=== PATIENT | male | born 1935 | race Two or more races ===

== ENCOUNTER 2018-06-13 05:44 | Day surgery (SDC) | payer MEDICARE, OTHER ==
[~2018-06-13] VITALS: Ht 167.6 cm; Wt 75.9 kg
[2018-06-13] MEDS ORDERED: LACTATED RINGERS 1,000 ML IV SCH (06:32)
[2018-06-13] MEDS ORDERED: ALFU10TA PO (06:36)
[2018-06-13] MEDS ORDERED: SITA100T PO (06:36)
[2018-06-13] MEDS ORDERED: PANT40TA3 PO (06:36)
[2018-06-13] MEDS ORDERED: AMLO5TAB7 PO (06:36)
[2018-06-13] MEDS ORDERED: METO50TA82 PO (06:36)
[2018-06-13] MEDS ORDERED: ATOR10TA9 PO (06:36)
[2018-06-13] MEDS ORDERED: METF500T17 PO (06:36)
[2018-06-13 06:55] VITALS: BP 123/83
[2018-06-13 07:26] VITALS: BP 123/83
[2018-06-13] MEDS ORDERED: FENTANYL PF 100 MCG/2ML ONE (07:29)
[2018-06-13] MEDS ORDERED: MEPERIDINE/PF 25MG/0.5ML IVPush PRN (08:30)
[2018-06-13] MEDS ORDERED: hydrALAzine 20 MG/ML, 1ML IV PRN (08:30)
[2018-06-13] MEDS ORDERED: METOPROLOL 1 MG/ML, 5ML IV PRN (08:30)
[2018-06-13] MEDS ORDERED: DIPHENHYDRAMINE 50 MG/ML, 1ML IVPush PRN (08:30)
[2018-06-13] MEDS ORDERED: FENTANYL PF 100 MCG/2ML IV PRN (08:30)
[2018-06-13] MEDS ORDERED: LABETALOL 5MG/ML, 20ML IV PRN (08:30)
[2018-06-13] MEDS ORDERED: ONDANSETRON 2MG/ML, 2ML ONE (08:37)
[2018-06-13] MEDS ORDERED: GLYCOPYRROLATE 0.2MG/1ML, 5ML ONE (08:37)
[2018-06-13] MEDS ORDERED: PROPOFOL 10 MG/ML, 20ML ONE (08:37)
[2018-06-13] MEDS ORDERED: CEFAZOLIN 1,000 MG ONE (08:37)
[2018-06-13] MEDS ORDERED: ROCURONIUM 10MG/ML,5ML ONE (08:37)
[2018-06-13] MEDS ORDERED: DEXAMETHASONE 4 MG/ML, 1ML ONE (08:37)
[2018-06-13] MEDS ORDERED: SUCCINYLCHOLINE 20 MG/ML, 10ML ONE (08:37)
[2018-06-13] MEDS ORDERED: NEOSTIGMINE 1 MG/ML, 10ML ONE (08:37)
== END 2018-06-13 10:20 | disposition home or self-care (01) ==
LOC: OUT 05:44
PROVIDERS: ATTEND Internal Medicine Geriatric Medicine
DX: K21.0 Gastro-esophageal reflux disease with esophagitis (principal); K44.9 Diaphragmatic hernia without obstruction or gangrene; C96.9 Malignant neoplasm of lymphoid, hematopoietic and related tissue, unspecified; M10.9 Gout, unspecified; Z86.010 Personal history of colon polyps; Z85.46 Personal history of malignant neoplasm of prostate; Z98.42 Cataract extraction status, left eye; Z98.41 Cataract extraction status, right eye; Z72.89 Other problems related to lifestyle
CPT/HCPCS: 43238; 82803; 82962; 88172; 88173; 88305; 88313; 88342; 93005; J0330; J0690; J1100; J2405; J2704; J2710; J3010; J3490; G0461

== ENCOUNTER 2018-07-14 07:46 | Day surgery (SDC) | payer MEDICARE ==
[~2018-07-14] VITALS: Ht 167.6 cm; Wt 76.2 kg
[~2018-07-14 07:46] MED LIST: ALFU10TA PO; AMLO5TAB7 PO; ATOR10TA9 PO; METF500T17 PO; METO50TA82 PO; PANT40TA3 PO; SITA100T PO
[2018-07-14 08:28] VITALS: BP 130/89
[2018-07-14] MEDS ORDERED: CEFAZOLIN PMX 1GM/50ML 50 ML IV ONE (08:30)
[2018-07-14] MEDS ORDERED: SODIUM CHLORIDE 0.9% 1,000 ML IV SCH (08:30)
[2018-07-14] MEDS ORDERED: CEFAZOLIN PMX 1GM/50ML 50 ML ONE (08:33)
[2018-07-14] MEDS ORDERED: LIDOCAINE-MPF 1%, 5ML ONE (08:54)
[2018-07-14] MEDS ORDERED: MIDAZOLAM 1 MG/ML, 5ML ONE ×2 (09:20→09:21)
[2018-07-14] MEDS ORDERED: FENTANYL PF 100 MCG/2ML ONE (09:20)
[2018-07-14] MEDS ORDERED: FLUMAZENIL 0.1 MG/1 ML, 5ML ONE (09:21)
[2018-07-14] MEDS ORDERED: NALOXONE 1 MG/ML, 2ML ONE (09:21)
== END 2018-07-14 11:30 | disposition home or self-care (01) ==
LOC: OUT 07:46
PROVIDERS: ATTEND Internal Medicine Hematology & Oncology
DX: Z45.2 Encounter for adjustment and management of vascular access device (principal); C15.9 Malignant neoplasm of esophagus, unspecified; E11.9 Type 2 diabetes mellitus without complications; I10 Essential (primary) hypertension; Z90.49 Acquired absence of other specified parts of digestive tract; Z98.890 Other specified postprocedural states
CPT/HCPCS: 36561; 76937; 77001; 99156; 99157; C1788; J0690; J7030; J2250; J3010; J1642; J2310

== ENCOUNTER → 2018-11-10 | Outpatient (CLI) | payer MEDICARE ==
[~2018-11-10] MED LIST changes: +ACET325T26 PO; +AMLO-150 PO; -AMLO5TAB7 PO; +ATOR20TA PO; +METO25TA91 PO; +OXYCODONE PO; +POTA20PA25 PO; +SERT25TA PO
== END | disposition home or self-care (01) ==
LOC: STAR 13:41
PROVIDERS: ATTEND Internal Medicine Geriatric Medicine
DX: Z01.818 Encounter for other preprocedural examination (principal); C15.9 Malignant neoplasm of esophagus, unspecified
CPT/HCPCS: 93005

== ENCOUNTER 2018-11-14 06:46 | Day surgery (SDC) | payer MEDICARE ==
[~2018-11-14] VITALS: Ht 152.4 cm; Wt 64.9 kg
[2018-11-14] MEDS ORDERED: LACTATED RINGERS 1,000 ML IV SCH (07:21)
[2018-11-14 07:24] VITALS: BP 127/75
[2018-11-14] MEDS ORDERED: LIDOCAINE-MPF 1%, 2ML INFIL ONE (07:30)
[2018-11-14] MEDS ORDERED: SUCCINYLCHOLINE 20 MG/ML, 10ML ONE (08:36)
[2018-11-14] MEDS ORDERED: PROPOFOL 10 MG/ML, 20ML ONE (08:36)
[2018-11-14] MEDS ORDERED: FENTANYL PF 100 MCG/2ML IV PRN (10:00)
[2018-11-14] MEDS ORDERED: OXYcodone 5 MG/5 ML ORAL.SOL UDC PO PRN (10:00)
[2018-11-14] MEDS ORDERED: MEPERIDINE/PF 25MG/0.5ML IVPush PRN (10:00)
[2018-11-14] MEDS ORDERED: LABETALOL 5MG/ML, 20ML IV PRN (10:00)
[2018-11-14] MEDS ORDERED: HYDROmorphone 1 MG/ML, 1ML IV PRN (10:00)
[2018-11-14] MEDS ORDERED: ONDANSETRON 2MG/ML, 2ML IVPush PRN (10:00)
[2018-11-14] MEDS ORDERED: MIDAZOLAM 1 MG/ML, 2ML IV PRN (10:00)
== END 2018-11-14 10:42 | disposition home or self-care (01) ==
LOC: OUT 06:46
PROVIDERS: ATTEND Internal Medicine Geriatric Medicine
DX: C15.9 Malignant neoplasm of esophagus, unspecified (principal); I10 Essential (primary) hypertension; E11.9 Type 2 diabetes mellitus without complications; Z98.890 Other specified postprocedural states; Z90.49 Acquired absence of other specified parts of digestive tract; Z79.84 Long term (current) use of oral hypoglycemic drugs
CPT/HCPCS: 43237; 82962; J0330; J2704; J7120

== ENCOUNTER 2020-04-22 06:59 | Day surgery (SDC) | payer MEDICARE ==
[~2020-04-22] VITALS: Ht 167.6 cm; Wt 67.9 kg
[2020-04-22] MEDS ORDERED: CHLORHEXIDINE 15 ML UDC MM STA (07:26)
[2020-04-22] MEDS ORDERED: LACTATED RINGERS 1,000 ML IV SCH (07:26)
[2020-04-22 07:31] VITALS: BP 128/80
[2020-04-22] MEDS ORDERED: METF500T3 PO (07:39)
[2020-04-22] MEDS ORDERED: MIRA25TA PO (07:39)
[2020-04-22] MEDS ORDERED: METO25TA35 PO (07:39)
[2020-04-22] MEDS ORDERED: ALBU2.5V11 NEB (07:39)
[2020-04-22] MEDS ORDERED: TIZA4CAP PO (07:39)
[2020-04-22] MEDS ORDERED: ASPI-515 PO (07:39)
[2020-04-22] MEDS ORDERED: PANT40TA3 PO (08:14)
[2020-04-22] MEDS ORDERED: ATOR20TA37 PO (08:14)
[2020-04-22 08:15] LABS: BASOPHILS # (AUTO) 0.02 x10^3/uL (0-0.1); BASOPHILS % (AUTO) 0 % (0-1); EOSINOPHILS # (AUTO) 0.03 x10^3/uL (0-0.4); EOSINOPHILS % (AUTO) 1 % (1-7); LYMPHOCYTES % (AUTO) 14 % (22-44); MD NO; MEAN CORPUSCULAR HEMOGLOBIN 26.1 pg (27.5-34.5); MEAN CORPUSCULAR HGB CONC 32.1 g/dL (33.2-36.2); MEAN CORPUSCULAR VOLUME 81.1 fL (81-97); MEAN PLATELET VOLUME 8.5 fL (7.4-10.4); MONOCYTES # (AUTO) 0.42 x10^3/uL (0.2-0.8); MONOCYTES % (AUTO) 9 % (2-9); NEUTROPHILS # (AUTO) 3.82 x10^3/uL (1.8-6.8); NEUTROPHILS % (AUTO) 77 % (42-75); PLATELET COUNT 103 x10^3/uL (130-400); RED BLOOD COUNT 5.06 x10^6/uL (4.38-5.82); RED CELL DISTRIBUTION WIDTH 15.4 % (9.4-14.8)
[2020-04-22 08:26] LABS: ALANINE AMINOTRANSFERASE 17 U/L (12-78); ALBUMIN 3.8 g/dL (3.4-5.0); ANION GAP 8 mmol/L (5-15); CALCIUM 8.5 mg/dL (8.5-10.1); CHLORIDE 107 mmol/L (98-107); CREATININE 0.91 mg/dL (0.7-1.3)
[2020-04-22 08:28] LABS: ALKALINE PHOSPHATASE 100 U/L (45-117); BILIRUBIN,TOTAL 1.4 mg/dL (0.2-1.0)
[2020-04-22 08:29] LABS: INTERNATIONAL NORMALIZED RATIO 1.04 (0.93-1.1)
[2020-04-22] MEDS ORDERED: FENTANYL PF 100 MCG/2ML ONE (08:56)
[2020-04-22] MEDS ORDERED: SUCCINYLCHOLINE 20 MG/ML, 10ML ONE (09:00)
[2020-04-22] MEDS ORDERED: ONDANSETRON 2MG/ML, 2ML ONE (09:00)
[2020-04-22] MEDS ORDERED: PROPOFOL 10 MG/ML, 100ML IV ONE (09:00)
[2020-04-22] MEDS ORDERED: DEXAMETHASONE 4 MG/ML, 1ML ONE (09:00)
[2020-04-22] MEDS ORDERED: FENTANYL PF 100 MCG/2ML IV PRN (09:30)
== END 2020-04-22 11:15 | disposition home or self-care (01) ==
LOC: OUT 06:59
PROVIDERS: ATTEND Internal Medicine
DX: R13.10 Dysphagia, unspecified (principal); Z11.59 Encounter for screening for other viral diseases; K22.2 Esophageal obstruction; K21.9 Gastro-esophageal reflux disease without esophagitis; I70.0 Atherosclerosis of aorta; E11.9 Type 2 diabetes mellitus without complications; I10 Essential (primary) hypertension; J45.909 Unspecified asthma, uncomplicated; M10.9 Gout, unspecified; E78.5 Hyperlipidemia, unspecified; Z79.82 Long term (current) use of aspirin; Z79.84 Long term (current) use of oral hypoglycemic drugs; Z79.01 Long term (current) use of anticoagulants; Z79.899 Other long term (current) drug therapy; Z85.01 Personal history of malignant neoplasm of esophagus; Z88.8 Allergy status to other drugs, medicaments and biological substances; Z92.21 Personal history of antineoplastic chemotherapy; Z90.49 Acquired absence of other specified parts of digestive tract; Z98.890 Other specified postprocedural states; Z83.3 Family history of diabetes mellitus; Z83.79 Family history of other diseases of the digestive system; Z80.42 Family history of malignant neoplasm of prostate
CPT/HCPCS: 36415; 43248; 43259; 80053; 82962; 85025; 85610; 85730; 87635; 93005; J0330; J1100; J2405; J2704; J3010; J7120